=== PATIENT | male | born 1955 | race Caucasian/White ===

== ENCOUNTER 2020-01-10 16:35 | Outpatient (REF) | payer MEDICARE, SELFPAY ==
[2020-01-10 22:02] LABS: Hemoglobin A1C 5.7 % (3.8-5.6)
[2020-01-10 22:06] LABS: LDL CHOLESTEROL 124 mg/dL (<100)
== END 2020-01-10 16:55 ==
LOC: NCHCN 16:35
PROVIDERS: PCP Physician Assistant; Visit Provider Internal Medicine
DX: R73.09 Other abnormal glucose (principal); E66.9 Obesity, unspecified; J30.9 Allergic rhinitis, unspecified
CPT/HCPCS: 83721; 83036

== ENCOUNTER 2021-01-14 13:06 | Outpatient (REF) | payer MEDICARE, SELFPAY ==
[2021-01-14 20:17] LABS: Anion Gap 11.9 mmol/L (3-11); BUN 12 mg/dL (7-18); CO2 25.1 mmol/L (21.0-32.0); CREATININE 1.1 mg/dL (0.70-1.30); Calcium 8.9 mg/dL (8.5-10.1); Calculated LDL 103 mg/dL (<100); Chloride 106 mmol/L (98-107); Cholesterol 184 mg/dL (<200); Glucose 100 mg/dL (74-106); HDL Cholesterol 38 mg/dL (40-60); Potassium 4.2 mmol/L (3.5-5.1); Sodium 143 mmol/L (136-145); Triglyceride 218 mg/dL (<150); Vitamin B12 229 pg/mL (193-986)
[2021-01-22 13:30] LABS: Testosterone, Free 9.16 ng/dL (3.47-13.0); Testosterone, Total 229 ng/dL (240-950)
== END 2021-01-14 13:07 | disposition home or self-care (01) ==
LOC: NCHCN 13:06
PROVIDERS: PCP Physician Assistant; Visit Provider Internal Medicine
DX: Z00.00 Encounter for general adult medical examination without abnormal findings (principal); M19.90 Unspecified osteoarthritis, unspecified site; F52.21 Male erectile disorder; G60.9 Hereditary and idiopathic neuropathy, unspecified
CPT/HCPCS: 80048; 80061; 84402; 84403; 82607; 84443

== ENCOUNTER 2022-04-20 19:11 | Outpatient (REF) | payer MEDICARE, SELFPAY ==
[2022-04-20 19:47] LABS: Anion Gap 7.1 mmol/L (3-11); BUN 19 mg/dL (7-18); CO2 28.9 mmol/L (21.0-32.0); CREATININE 1.2 mg/dL (0.70-1.30); Calcium 9.3 mg/dL (8.5-10.1); Calculated LDL 128 mg/dL (<100); Chloride 104 mmol/L (98-107); Cholesterol 199 mg/dL (<200); Estimated GFR 65.87 (mL/min/1.73m2); Glucose 97 mg/dL (74-106); HDL Cholesterol 48 mg/dL (40-60); Potassium 4.4 mmol/L (3.5-5.1); Sodium 140 mmol/L (136-145); Triglyceride 118 mg/dL (<150)
== END 2022-04-20 19:12 | disposition home or self-care (01) ==
LOC: NCHCN 19:11
PROVIDERS: PCP Physician Assistant; Visit Provider Internal Medicine
DX: I10 Essential (primary) hypertension (principal); E66.9 Obesity, unspecified; R73.03 Prediabetes; F52.21 Male erectile disorder
CPT/HCPCS: 80048; 80061

== ENCOUNTER 2023-06-04 18:55 | Outpatient (REF) | payer MEDICARE, SELFPAY ==
[2023-06-04 19:24] LABS: Anion Gap 10.7 mmol/L (3-11); BUN 17 mg/dL (7-18); CO2 24.3 mmol/L (21.0-32.0); CREATININE 1.1 mg/dL (0.70-1.30); Calcium 9.4 mg/dL (8.5-10.1); Calculated LDL 100 mg/dL (<100); Chloride 105 mmol/L (98-107); Cholesterol 177 mg/dL (<200); Estimated GFR 72.67 (mL/min/1.73m2); Glucose 109 mg/dL (74-106); HDL Cholesterol 46 mg/dL (40-60); Potassium 4.2 mmol/L (3.5-5.1); Sodium 140 mmol/L (136-145); Triglyceride 155 mg/dL (<150)
== END 2023-06-04 18:56 | disposition home or self-care (01) ==
LOC: NCHCN 18:55
PROVIDERS: PCP Physician Assistant; Visit Provider Internal Medicine
DX: I10 Essential (primary) hypertension (principal)
CPT/HCPCS: 80048; 80061

== ENCOUNTER 2024-06-09 20:06 | Outpatient (REF) | payer MEDICARE, SELFPAY ==
[2024-06-12 10:05] LABS: Hepatitis C Ab w Rflx HCV PCR Negative (Negative)
[2024-06-12 10:26] LABS: HIV-1/2 Ag & Ab Screen Negative (Negative)
== END 2024-06-09 20:07 | disposition home or self-care (01) ==
LOC: NCHCN 20:06
PROVIDERS: PCP Physician Assistant; Visit Provider Internal Medicine
DX: Z11.4 Encounter for screening for human immunodeficiency virus [HIV] (principal)
CPT/HCPCS: 86803; 87389